=== PATIENT | male | born 1940 | race Caucasian/White ===

== ENCOUNTER 2025-06-17 16:29 | Emergency (ER) | payer MEDICARE ==
[2025-06-17] MEDS: Bacitracin Oint 1 GM U/D Packet TOP ONE (20:00)
[2025-06-17] MEDS: Diphtheria,Pertussis(Acell),Tetanus Vaccine 0.5 ML Syringe IM ONE (20:31)
== END 2025-06-17 20:44 | disposition home or self-care (01) ==
LOC: JP.ED 16:29
DX: S51.011A Laceration without foreign body of right elbow, initial encounter (principal); S81.811A Laceration without foreign body, right lower leg, initial encounter; S80.211A Abrasion, right knee, initial encounter; Z79.899 Other long term (current) drug therapy; Z23 Encounter for immunization; W22.8XXA Striking against or struck by other objects, initial encounter; Y93.89 Activity, other specified
CPT/HCPCS: 12004; 90471; 90715; 99282; J2003